=== PATIENT | male | born 1980 | race Caucasian/White ===

== ENCOUNTER 2021-11-29 12:39 | Emergency (ER) | payer MEDICAID ==
[~2021-11-29] VITALS: Ht 167.6 cm; Wt 109.1 kg
[2021-11-29 13:23] VITALS: BP 168/115
[2021-11-29 14:37] LABS: BASOPHILS # (AUTO) 0.1 X10'3 (0-0.2); BASOPHILS % (AUTO) 0.9 % (0-1); EOSINOPHILS # (AUTO) 0.1 X10'3 (0-0.9); EOSINOPHILS % (AUTO) 0.9 % (0-6); LYMPHOCYTES # (AUTO) 2.2 X10'3 (1.1-4.8); LYMPHOCYTES % (AUTO) 19.3 % (21-51); MEAN CORPUSCULAR HEMOGLOBIN 32.3 PG (27.0-31.0); MEAN CORPUSCULAR HGB CONC 34.9 g/dL (33.0-36.5); MEAN CORPUSCULAR VOLUME 92.5 FL (78-98); MEAN PLATELET VOLUME 7.7 FL (7.4-10.4); MONOCYTES # (AUTO) 0.7 X10'3 (0-0.9); NEUTROPHILS # (AUTO) 8.4 X10'3 (1.8-7.7); NEUTROPHILS % (AUTO) 72.9 % (42-75); PLATELET COUNT 338 X10'3 (140-440); RED BLOOD COUNT 4.65 X10'6 (4.70-6.10); RED CELL DISTRIBUTION WIDTH 16.4 % (11.5-14.5); WHITE BLOOD COUNT 11.5 X10'3 (4.5-11.0)
[2021-11-29 14:58] LABS: ALANINE AMINOTRANSFERASE 56 U/L (12-78); ALBUMIN 3.9 G/DL (3.4-5.0); ALKALINE PHOSPHATASE 74 IU/L (46-116); ANION GAP 7 (8-16); ASPARTATE AMINO TRANSFERASE 23 U/L (10-37); BILIRUBIN,TOTAL 0.5 MG/DL (0.1-1.0); BLOOD UREA NITROGEN 10 MG/DL (7-18); BUN/CREATININE RATIO 14.1 (5.4-32.0); CALCIUM 8.5 MG/DL (8.5-10.1); CHLORIDE 104 MMOL/L (99-107); CREATININE 0.71 MG/DL (0.60-1.10); GLUCOSE 100 MG/DL (70-104); POTASSIUM 3.2 MMOL/L (3.5-5.1); SODIUM 139 MMOL/L (135-145); TOTAL CARBON DIOXIDE 27.8 MMOL/L (24-32); TOTAL PROTEIN 7.7 G/DL (6.4-8.2); eGFR > 90 ML/MIN
--- NOTE | 2021-11-29 15:00 | NUR ---
Received patient to bed #23 at 1450. Pt ambulated independently with LENNY Vasquez. Pt's belongings list was already completed.
[2021-11-29 15:07] LABS: ETHANOL < 0.010 GM/DL (0.0-0.010)
[2021-11-29 15:22] LABS: CLARITY,URINE CLEAR (Clear); COLOR,URINE YELLOW (Yellow); GLUCOSE, URINE NEGATIVE (Neg); KETONES,URINE NEGATIVE (Neg); LEUKOCYTE ESTERASE ,URINE NEGATIVE (Neg); NITRITES, URINE NEGATIVE (Neg); OCCULT BLOOD,URINE NEGATIVE (Neg); PH,URINE 7.5 (4.8-8.0); PROTEIN,URINE TRACE mg/dl (Neg); UROBILINOGEN,URINE 0.2 E.U/dL (0.2-1.0)
[2021-11-29] MEDS ORDERED: ARIP10TA57 PO (15:25)
[2021-11-29] MEDS ORDERED: QUET300T72 PO (15:25)
[2021-11-29] MEDS ORDERED: ARIP5TAB60 PO (15:25)
[2021-11-29 15:27] LABS: URINE AMPHETAMINE SCREEN POSITIVE (Neg); URINE BARBITUATE SCREEN NEGATIVE (Neg); URINE BENZODIAZEPINES SCREEN NEGATIVE (Neg); URINE CANNABINOID SCREEN POSITIVE (Neg); URINE COCAINE SCREEN NEGATIVE (Neg); URINE METHADONE SCREEN NEGATIVE (Neg); URINE OPIATE SCREEN NEGATIVE (Neg); URINE PHENCYCLIDINE SCREEN NEGATIVE (Neg)
--- NOTE | 2021-11-29 15:30 | NUR ---
One on one assessment with patient completed at bedside. Pt presents paranoid. Pt told lyric writer "I called the police, I wish I didnt." " They arrested me, I have everything on video." "It's all recorded." Pt had called LE stating there were people under the house. Pt thought people were following him and now they were under the house. Pt states "I shouldn't be here, payroll benefits administrator came...." Pt stopped taking his medication "I took medicine until I thought I stopped having my episodes," Pt did not elaborate on "episodes." Per ext med rec pt received Aripiprazole 10mg and Quetiapine 300mg HS in September 2021. Pt states he didn't like the Quetiapine reports sedation "it made me sleep until the afternoon." Pt is difficult to follow at times r/t latency in his speech and his soft tone at times. Pt denies suicidal, homicidal thoughts, A/VH.
[2021-11-29 15:46] LABS: UA COLLECTION TYPE CLN CATCH MIDSTREAM
[2021-11-29 15:47] LABS: BACTERIA,URINE NONE SEEN /HPF (Neg); MUCUS STRANDS FEW /LPF (Neg); RBC,URINE NONE SEEN /HPF (0-2); SQUAMOUS EPITHELIAL CELL,UR FEW /LPF (FEW); WBC,URINE 0-4 /HPF (0-4)
--- NOTE | 2021-11-29 16:19 | NUR ---
ALFREDO PT'S MOTHER [phone] MALOU PT'S BROTHER [phone]
--- NOTE | 2021-11-29 17:23 | NUR ---
packet faxed to [facility]
--- NOTE | 2021-11-29 17:35 | NUR ---
Pt appears to be sleeping comfortably, no restless movements. Respirations even and unlabored.
[2021-11-29] MEDS ORDERED: quetiapine fumarate ER 300mg tablet PO SCH (21:00)
--- NOTE | 2021-11-29 22:48 | NUR ---
PT MOVED FROM BED 15 TO BED 9. PT SLEEPING
--- NOTE | 2021-11-30 01:46 | NUR ---
PT SLEEPING. NO NEEDS AT THIS TIME
[2021-11-30] MEDS ORDERED: ARIPIPRAZOLE 10 MG TABLET PO SCH (08:00)
--- NOTE | 2021-11-30 08:45 | NUR ---
Pt refused Ablilify. Stated that the mental health worker told him to refuse the medication because they are adjusting his medications.
--- NOTE | 2021-11-30 09:23 | NUR ---
Mental health staff in to speak with pt.
--- NOTE | 2021-11-30 10:39 | NUR ---
Pt given and understands d/c instructions. Ambulatory with a steady gait.
== END 2021-11-30 10:35 | disposition home or self-care (01) ==
LOC: ER 12:40
DX: F31.9 Bipolar disorder, unspecified (principal); Z88.0 Allergy status to penicillin; Z88.5 Allergy status to narcotic agent; Z79.899 Other long term (current) drug therapy; Z20.822 Contact with and (suspected) exposure to COVID-19
CPT/HCPCS: 36415; 80053; 80305; 80320; 81001; 84443; 85025; 87635; 99285; C9803; 99283

== ENCOUNTER 2022-04-27 21:47 | Emergency (ER) | payer MEDICAID ==
[~2022-04-27] VITALS: Ht 167.6 cm; Wt 115.9 kg
[~2022-04-27 21:47] MED LIST: ARIP10TA57 PO; QUET300T72 PO
[2022-04-27 22:46] LABS: BASOPHILS # (AUTO) 0.1 X10'3 (0-0.2); BASOPHILS % (AUTO) 0.8 % (0-1); EOSINOPHILS % (AUTO) 0.2 % (0-6); HEMATOCRIT 46.5 % (42.0-52.0); HEMOGLOBIN 15.9 g/dl (14.0-17.9); LYMPHOCYTES # (AUTO) 1.4 X10'3 (1.1-4.8); MEAN CORPUSCULAR HEMOGLOBIN 30.7 PG (27.0-31.0); MEAN CORPUSCULAR HGB CONC 34.2 g/dL (33.0-36.5); MEAN CORPUSCULAR VOLUME 89.8 FL (78-98); MEAN PLATELET VOLUME 7.9 FL (7.4-10.4); MONOCYTES # (AUTO) 0.3 X10'3 (0-0.9); MONOCYTES % (AUTO) 2.3 % (2-12); NEUTROPHILS # (AUTO) 12.4 X10'3 (1.8-7.7); NEUTROPHILS % (AUTO) 86.7 % (42-75); PLATELET COUNT 396 X10'3 (140-440); RED BLOOD COUNT 5.18 X10'6 (4.70-6.10); RED CELL DISTRIBUTION WIDTH 16.5 % (11.5-14.5); WHITE BLOOD COUNT 14.2 X10'3 (4.5-11.0)
[2022-04-27 23:00] LABS: ALANINE AMINOTRANSFERASE 47 U/L (12-78); ALBUMIN 4.1 G/DL (3.4-5.0); ALKALINE PHOSPHATASE 66 IU/L (46-116); ANION GAP 9 (8-16); ASPARTATE AMINO TRANSFERASE 21 U/L (10-37); BILIRUBIN,TOTAL 0.3 MG/DL (0.1-1.0); BLOOD UREA NITROGEN 14 MG/DL (7-18); BUN/CREATININE RATIO 15.6 (5.4-32.0); CALCIUM 9.3 MG/DL (8.5-10.1); CHLORIDE 105 MMOL/L (99-107); GLUCOSE 129 MG/DL (70-104); LIPASE 82 U/L (73-393); POTASSIUM 4.1 MMOL/L (3.5-5.1); SODIUM 142 MMOL/L (135-145); TOTAL CARBON DIOXIDE 28.1 MMOL/L (24-32); TOTAL PROTEIN 8.3 G/DL (6.4-8.2); eGFR > 90 ML/MIN
[2022-04-27] MEDS ORDERED: ondansetron 4mg rapidly disintigrating tab PO ONE (23:35)
[2022-04-28] MEDS ORDERED: normal saline 1000ml 1,000 ML IV ONE (01:40)
[2022-04-28] MEDS ORDERED: proCHLORperazine 10 MG/2 ml inj IV ONE (01:40)
[2022-04-28] MEDS ORDERED: famotidine/PF 10 mg/ml inj IV ONE (01:40)
[2022-04-28] MEDS ORDERED: pantoprazole 40MG/NS 100ML BAG 100 ML IV ONE (01:40)
[2022-04-28] MEDS ORDERED: LIDOcaine Viscous 15ml cup MM ONE (01:40)
[2022-04-28] MEDS ORDERED: mag hydrox/Alum hydrox/simeth 30ml oral suspension PO ONE (01:40)
[2022-04-28] MEDS ORDERED: ondansetron/PF 4mg/2ml inj IV ONE (01:40)
[2022-04-28 01:56] LABS: CLARITY,URINE CLEAR (Clear); COLOR,URINE YELLOW (Yellow); GLUCOSE, URINE NEGATIVE (Neg); KETONES,URINE NEGATIVE (Neg); LEUKOCYTE ESTERASE ,URINE NEGATIVE (Neg); NITRITES, URINE NEGATIVE (Neg); OCCULT BLOOD,URINE NEGATIVE (Neg); PH,URINE 8.5 (4.8-8.0); PROTEIN,URINE 100 mg/dl (Neg); UROBILINOGEN,URINE 0.2 E.U/dL (0.2-1.0)
[2022-04-28 01:58] LABS: UA COLLECTION TYPE CLN CATCH MIDSTREAM
[2022-04-28 02:15] LABS: BACTERIA,URINE NONE SEEN /HPF (Neg); RBC,URINE 0-2 /HPF (0-2); SQUAMOUS EPITHELIAL CELL,UR FEW /LPF (FEW); WBC,URINE 0-4 /HPF (0-4)
[2022-04-28] MEDS ORDERED: FAMO-128 PO (02:41)
[2022-04-28] MEDS ORDERED: ONDA8TAB13 PO (02:41)
[2022-04-28 03:03] VITALS: BP 132/96
== END 2022-04-28 03:05 | disposition home or self-care (01) ==
LOC: ER 21:48
DX: K29.70 Gastritis, unspecified, without bleeding (principal); R12 Heartburn; R11.10 Vomiting, unspecified; F31.9 Bipolar disorder, unspecified; F17.200 Nicotine dependence, unspecified, uncomplicated; F15.90 Other stimulant use, unspecified, uncomplicated; Z88.0 Allergy status to penicillin; Z88.5 Allergy status to narcotic agent; Z79.899 Other long term (current) drug therapy
CPT/HCPCS: 36415; 80053; 81001; 83690; 85025; 96361; 96374; 96375; 99284; C9113; J0780; J2405; J3490; J7030

== ENCOUNTER 2022-10-30 02:36 | Emergency (ER) | payer MEDICAID ==
[~2022-10-30 02:36] MED LIST changes: +FAMO-128 PO; +ONDA8TAB13 PO; -QUET300T72 PO; +QUET300T91 PO
== END 2022-10-30 03:54 | disposition left against medical advice (07) ==
LOC: ER 02:36
DX: M25.473 Effusion, unspecified ankle (principal); Z53.21 Procedure and treatment not carried out due to patient leaving prior to being seen by health care provider